=== PATIENT | female | born 1945 | race Caucasian/White ===

== ENCOUNTER 2016-07-08 09:52 | Emergency (ER) | payer MEDICARE, OTHER ==
[2016-07-08 10:37] VITALS: BP 167/75
--- NOTE | 2016-07-08 10:51 | UC ---
Minor Trauma HPI - HPI Summary HPI Summary: SLIPPED ON STAIRS LAST NIGHT AND FELL DOWN 12 CARPETED STAIRS. NO JEAD INJURY OR LOC. HAS LEFT SIDED RIB PAIN AND LEFT SHOULDER PAIN. PAIN WORSE WITH COUGHING, MOVEMENT AND DEEP BREATHS. - History of Current Complaint Chief Complaint: UCUpperExtremity Stated Complaint: SHOULDER AND RIB INJURY Time Seen by Provider: 07/08/16 10:43 Hx Obtained From: Patient Onset/Duration: Sudden Onset, Lasting Hours, Still Present Onset Of Pain: Immediate Severity Initially: Moderate Severity Currently: Moderate Pain Intensity: 4 Pain Scale Used: 0-10 Numeric Mechanism Of Injury: Blunt Trauma - FEOLL DOWN CARPETED STAIRS Aggravating Factor(s): Coughing, Deep Breaths, Movement Alleviating Factor(s): OTC Meds Associated Signs And Symptoms: Negative: Loss Of Consciousness, Ecchymosis, Swelling - Allergies/Home Medications Allergies/Adverse Reactions: Allergies Allergy/AdvReac Type Severity Reaction Status Date / Time No Known Allergies Allergy Verified 07/08/16 10:30 Home Medications: Home Medications Ibuprofen [Advil] 200 mg PO 07/08/16 [History] PMH/Surg Hx/FS Hx/Imm Hx Previously Healthy: Yes - Surgical History Surgical History: Yes Surgery Procedure, Year, and Place: - Family History Known Family History: Positive: Hypertension - Social History Alcohol Use: None Substance Use Type: None Smoking Status (MU): Never Smoked Tobacco Have You Smoked in the Last Year: No Review of Systems Constitutional: Negative Skin: Negative Respiratory: Negative Cardiovascular: Negative Gastrointestinal: Negative Musculoskeletal: Arthralgia, Decreased ROM All Other Systems Reviewed And Are Negative: Yes Physical Exam Triage Information Reviewed: Yes Appearance: Well-Appearing, No Pain Distress, Well-Nourished Vital Signs: Initial Vital Signs Temp 97.6 F 07/08/16 10:31 Pulse 85 07/08/16 10:31 Resp 16 07/08/16 10:31 BP 167/75 07/08/16 10:31 Pulse Ox 97 07/08/16 10:31 Vital Signs Reviewed: Yes Eyes: Positive: Conjunctiva Clear ENT: Positive: Hearing grossly normal Neck: Positive: Supple Respiratory: Positive: Lungs clear, Normal breath sounds, No respiratory distress, No accessory muscle use Cardiovascular: Positive: Pulses Normal Abdomen Description: Positive: Soft Musculoskeletal: Positive: No Edema, ROM Limited @ - LEFT SHOULDER, Other: - MILDLY TTP LEFT RIB CAGE POSTERIORLY. LEFT SHOULDER NOT TENDER. POSITIVE EMPTY CAN AND CHEN. Neurological: Positive: Alert Psychological: Positive: Age Appropriate Behavior Skin: Negative: rashes Minor Trauma Course/Dx - Course Course Of Treatment: XRAYS DECLINED - Differential Dx/Diagnosis Provider Diagnoses: 1. LEFT RIB CONTUSION. 2. LEFT SHOULDER PAIN Discharge - Discharge Plan Condition: Stable Disposition: HOME Patient Education Materials: Rotator Cuff Injury (ED), Rib Contusion (ED) Forms: *Gen. Provider Communication Referrals: Jamil Olvera MD [Medical Doctor] - If Needed Shell Damian MD [Primary Care Provider] - If Needed Additional Instructions: SLING NEEDED FOR COMFORT. OTC MEDS. FOLLOW-UP ORTHO IF NOT IMPROVING WITH CONSERVATIVE MANAGEMENT.
== END 2016-07-08 11:25 | disposition home or self-care (01) ==
LOC: UCEAST 09:52
DX: S20.212A Contusion of left front wall of thorax, initial encounter (principal); W10.9XXA Fall (on) (from) unspecified stairs and steps, initial encounter; Y93.9 Activity, unspecified; Y92.9 Unspecified place or not applicable; M25.512 Pain in left shoulder
CPT/HCPCS: 99211; G0463

== ENCOUNTER 2018-09-30 12:32 | Day surgery (SDC) | payer MEDICARE, OTHER ==
[~2018-09-30 12:32] MED LIST: Acetaminophen TAB* 325 MG PO PRN
[2018-09-30] MEDS ORDERED: Midazolam* 1 MG/ML 2 ML VIAL (2 MG) ONE ×2 (15:38→15:49)
[2018-09-30 16:22] VITALS: BP 151/73
--- NOTE | 2018-10-01 05:00 | OP ---
DATE OF OPERATION: 09/30/18 LOCATED WITHIN [facility] DATE OF : 43 SURGEON: Darin Mckeon MD ANESTHESIA: Monitored anesthesia care. PRE-OP DIAGNOSIS: Cataract, right eye. POST-OP DIAGNOSIS: Cataract, right eye. OPERATIVE PROCEDURE: Extracapsular cataract extraction of the right eye with intraocular lens implant. IMPLANT: SN6AT3 20.0 diopter lens at 38 degrees to the right eye. COMPLICATIONS: None. DESCRIPTION OF PROCEDURE: The patient was given phenylephrine 2.5% and cyclopentolate 1% eye drops to the operative eye in the preoperative area. The patient was sat in the upright position and corneal markings were placed at 0 and 180 degrees to assist toric lens placement. The patient was taken to the operating room where time-out was taken to identify the correct patient, site, and side of surgery. The patient's right eye was prepped and draped in the usual sterile fashion with 5% Betadine. A second time-out was taken to verify the correct patient, site, and side of surgery and correct lens implant. A lid speculum was placed to the right eye. Corneal markings were then placed at the 38-degree meridian. A 1-mm paracentesis blade was used to make a clear corneal incision in a superotemporal position. Preservative-free 1% lidocaine was injected in the anterior chamber. DisCoVisc was then injected into the anterior chamber. A 2.75 mm keratome blade was used to make a triplanar incision at the inferotemporal position. A cystotome initiated a capsulorrhexis , which was completed with Utrata forceps in a continuous and curvilinear manner. Hydrodissection of the lens was performed with BSS on a cannula. The lens could be spun in the capsular bag. The phacoemulsification handpiece was used with a [id number] technique to remove the nucleus. The I/A handpiece then removed the residual cortical lens material. Provisc was then injected to inflate the capsular bag. The ORA system was then used to confirm the patient's lens power and astigmatism. The planned SN6AT3 20.0 diopter lens was then injected into the capsular bag and rotated to 38 degrees. The residual Provisc was then removed from the eye with the I/A handpiece. The corneal incisions were hydrated and no leaks occurred at physiologic pressure around 20 mmHg per palpation. The lens was confirmed to still be in the 38-degree meridian. The lid speculum was removed and drapes were removed. Maxitrol ointment was then placed to the surface of the operative eye. An adhesive patch and shield was then placed on the operative eye. The patient was taken to the postoperative area in stable condition. [id number]/[facility] #: [id number] MTDD
== END 2018-09-30 16:35 | disposition home or self-care (01) ==
LOC: OREAST 12:32
PROVIDERS: ATTEND Student in an Organized Health Care Education/Training Program
DX: H25.811 Combined forms of age-related cataract, right eye (principal); H25.12 Age-related nuclear cataract, left eye; H25.013 Cortical age-related cataract, bilateral
CPT/HCPCS: J2250; V2787

== ENCOUNTER 2018-10-07 08:27 | Day surgery (SDC) | payer MEDICARE, OTHER ==
[~2018-10-07 08:27] MED LIST changes: -Acetaminophen TAB* 325 MG PO PRN; +Cyclopentolate 1% OPTH.SOL* 2 ML BTL ONE; +Ketorolac 0.5% OPHTH (NF) 0.5 % 5 ML BTL ONE; +Lidocaine 1%* 5 ML VIAL ONE; +Neomycin/Polymy/Dex OPHTH.OIN* 3.5 GM ONE; +Phenylephrine OPHTH SOL 2.5%* 2 ML ONE; +Povidone Iodine 5% OPTH* 30 ML BTL ONE; +Tetracaine 0.5% OPTH.SOL 4 ML* 1 DROP BTL ONE; +Tropicamide 1% OPTH.SOL* BTL ONE; +acetaZOLAMIDE TAB* 250 MG ONE
[2018-10-07] MEDS ORDERED: Phenylephrine OPHTH SOL 2.5%* 2 ML ONE (08:42)
[2018-10-07] MEDS ORDERED: acetaZOLAMIDE TAB* 250 MG ONE (08:42)
[2018-10-07] MEDS ORDERED: Cyclopentolate 1% OPTH.SOL* 2 ML BTL ONE (08:42)
[2018-10-07] MEDS ORDERED: Tropicamide 1% OPTH.SOL* BTL ONE (08:42)
[2018-10-07] MEDS ORDERED: Povidone Iodine 5% OPTH* 30 ML BTL ONE (08:42)
[2018-10-07] MEDS ORDERED: Tetracaine 0.5% OPTH.SOL 4 ML* 1 DROP BTL ONE (08:42)
[2018-10-07] MEDS ORDERED: Neomycin/Polymy/Dex OPHTH.OIN* 3.5 GM ONE (08:42)
[2018-10-07] MEDS ORDERED: Ketorolac 0.5% OPHTH (NF) 0.5 % 5 ML BTL ONE (08:42)
[2018-10-07] MEDS ORDERED: Lidocaine 1%* 5 ML VIAL ONE (08:42)
[2018-10-07] MEDS ORDERED: Lidocaine 2% PF * 5 ML VIAL ONE (11:56)
[2018-10-07] MEDS ORDERED: Propofol* 10 MG/ML 20 ML BTL ONE (11:56)
[2018-10-07 12:45] VITALS: BP 153/74
--- NOTE | 2018-10-07 21:47 | OP ---
DATE OF OPERATION: 10/07/18 [facility] DATE OF : 43 SURGEON: Darin Mckeon MD. ANESTHESIA: Monitored anesthesia care. PREOPERATIVE DIAGNOSIS: Cataract, left eye. POSTOPERATIVE DIAGNOSIS: Cataract, left eye. OPERATIVE PROCEDURE: Extracapsular cataract extraction of the left eye with intraocular lens implant. IMPLANT: SN6AT4 19.0 diopter lens at 121 degrees to the left eye. COMPLICATIONS: None. DESCRIPTION OF PROCEDURE: The patient was given phenylephrine 2.5% and cyclopentolate 1% eye drops to the operative eye in the preoperative area. The patient was sat in the upright position and corneal markings were placed at 0 to 180 degrees to assist toric lens placement. The patient was taken to the operating room, where a time-out was taken to identify the correct patient, site and side of surgery. The patient's left eye was prepped and draped in the usual sterile fashion with 5% Betadine. A second time-out was taken to verify the correct patient, side, and site of surgery and correct lens selection. A lid speculum was placed to the left eye. A 1 mm paracentesis blade was used to make a clear corneal incision in the inferotemporal position. Preservative- free 1% lidocaine was injected in the anterior chamber. DisCoVisc was then injected in the anterior chamber. A 2.75 mm keratome blade was used to make a triplanar incision in the superotemporal position. A cystotome initiated a capsulorrhexis, which was completed with Utrata forceps in a continuous and curvilinear manner. Hydrodissection of the lens was performed with BSS on a cannula. The lens could be spun in a capsular bag. The phacoemulsification handpiece was used with divide-and- conquer technique to remove the nucleus. The I/A handpiece then removed the residual cortical lens material. Provisc was then injected to inflate the capsular bag. The ORA system was attempted to confirm toric lens placement; however, an image could not be obtained and therefore, ORA was aborted. Corneal markings were then placed at the 121 degree meridian. The planned SN6AT4 19.0 diopter lens was then injected in the capsular bag and rotated to the 121-degree meridian. The Provisc was then removed from the anterior chamber using the I/A handpiece. The corneal incisions were hydrated and no leaks occurred at physiologic pressure around 20 mmHg per palpation. The lid speculum was removed and drapes removed. Maxitrol ointment was then placed to the surface of the operative eye. An adhesive patch and shield was then placed on the operative eye. The patient was taken to the postoperative area in stable condition. [id number]/[facility] #: [id number] MTDD
== END 2018-10-07 12:40 | disposition home or self-care (01) ==
LOC: OREAST 08:27
PROVIDERS: ATTEND Student in an Organized Health Care Education/Training Program
DX: H25.12 Age-related nuclear cataract, left eye (principal); I10 Essential (primary) hypertension; E78.00 Pure hypercholesterolemia, unspecified
CPT/HCPCS: A9270-GY; J2704; V2787